=== PATIENT | male | born 1970 | race Two or more races ===

== ENCOUNTER 2018-08-07 13:03 | Emergency (ER) | payer OTHER ==
[~2018-08-07] VITALS: Ht 170.2 cm; Wt 114.3 kg
[2018-08-07] MEDS ORDERED: KETOROLAC TROMETH 60MG/2ML VIAL IM ONE (14:15)
[2018-08-07] MEDS ORDERED: cefTRIAXone SOD 1,000 MG VL IM ONE (14:15)
[2018-08-07] MEDS ORDERED: HYDROcodone-ACET 10/325MG TAB PO ONE (14:15)
[2018-08-07] MEDS ORDERED: BACITRACIN TOP OINT 1 UD PKG TOP ONE (14:45)
[2018-08-07] MEDS ORDERED: LET TOPICAL SOLN 5 ML TOP ONE (14:45)
[2018-08-07] MEDS ORDERED: LIDOCAINE 1% (LOCAL ANESTH.) PF 5ml SDV ID ONE (14:45)
[2018-08-07 17:40] VITALS: BP 133/70
== END 2018-08-07 18:06 | disposition home or self-care (01) ==
LOC: ER 13:03
DX: S92.421B Displaced fracture of distal phalanx of right great toe, initial encounter for open fracture (principal); W20.8XXA Other cause of strike by thrown, projected or falling object, initial encounter; Y93.89 Activity, other specified; Y99.8 Other external cause status; Y92.89 Other specified places as the place of occurrence of the external cause
CPT/HCPCS: 12002; 73620; 73630; 96372; 99283; J0696; J1885; J3490